=== PATIENT | female | born 1950 | race Caucasian/White ===

== ENCOUNTER 2017-10-22 11:01 | Outpatient (CLI) | payer MEDICARE ==
--- NOTE | 2017-10-22 12:25 | RAD ---
LEFT HIP 2 VIEWS: HISTORY: Left hip pain. FINDINGS: There are severe degenerative changes in the left hip joint manifested by osteophyte and subchondral cyst formation and joint space narrowing. No fracture, dislocation, or bony destruction is seen. IMPRESSION: Severe left hip osteoarthritis. POS: [facility]
== END 2017-10-22 11:02 | disposition home or self-care (01) ==
LOC: SCSRAD 11:01
PROVIDERS: ATTEND Family Medicine
DX: M16.52 Unilateral post-traumatic osteoarthritis, left hip (principal)